=== PATIENT | female | born 1995 | race Caucasian/White ===

== ENCOUNTER 2017-03-23 15:55 | Emergency (ER) | payer OTHER ==
--- NOTE | ~2017-03-23 | CR63 ---
[facility] A Service of [facility] & [facility] RADIOLOGY TEXT RESULTS PATIENT: MARCY BELTRAN LOCATION: CFTX : [birth year] UNIT #: [id number] AGE: [address]: Teodora Resendez APRN SEX: F ORDER DR: [id number] [facility] [address] [place], [place] [address] [id number] MR#: [id number] Acc #: [id number] NAME: MARCY BELTRAN : 1995 SEX: F STUDY DATE/TIME: 03/23/2017 17:21 UNIT: [facility] ROOM: STUDY DESCRIPTION: CR Chest 2 View Attending Physician: Teodora Resendez A.P.R.N. Ordering Physician: Ed Mykel Jorgensen M.D. Primary Care Physician: Primary Care Physician No MEDICAL IMAGING REPORT This report is preliminary unless electronic signature is present EXAM PA and lateral chest HISTORY Cough for 1 week. FINDINGS 2 views of the chest demonstrate the cardiac size and pulmonary vascularity are normal. Mild right lower thoracic curve. No infiltrates or effusions. IMPRESSION No acute findings and no active disease. Dictated by... Joseph Spence M.D. THIS IS AN ELECTRONICALLY VERIFIED REPORT Joseph Spence M.D. at 03/24/2017 2:39 PM DFL/psc TD: 03/23/2017 20:39 JOB #: [id number] MEDICAL IMAGING REPORT Page 1 of 1 COPY
[2017-03-23 16:54] LABS: INFLUENZA A NEG (NEG); INFLUENZA B NEG (NEG)
== END 2017-03-23 18:28 | disposition home or self-care (01) ==
LOC: CFTX 15:55
PROVIDERS: Nurse Practitioner
DX: J20.9 Acute bronchitis, unspecified (principal); J02.0 Streptococcal pharyngitis; F17.210 Nicotine dependence, cigarettes, uncomplicated; Z20.818 Contact with and (suspected) exposure to other bacterial communicable diseases
CPT/HCPCS: 71020; 84703; 87804; 87880; 94640; 99283